=== PATIENT | female | born 1935 | race African-American/Black ===

== ENCOUNTER → 2016-08-09 | Emergency (ER) | payer MEDICARE, MEDICAID ==
[~2016-08-09] MED LIST: ALP15OS EACHEYE; CLOP75TA28 PO; DORZ2SOL15 EACHEYE; GLIP-116 PO; HYDR25TA4 PO; LATA0.0015 EACHEYE; LISI-646 PO; METF-490 PO; PRED15SO2 EACHEYE; TRAV0.00 EACHEYE
== END | disposition left against medical advice (07) ==
LOC: ER 11:12
DX: R51 Headache (principal); Z53.21 Procedure and treatment not carried out due to patient leaving prior to being seen by health care provider